=== PATIENT | female | born 1985 | race Caucasian/White ===

== ENCOUNTER → 2022-09-18 | Outpatient (REF) | payer OTHER | LOC: M LAB REF 16:40 | PROVIDERS: ATTEND Student in an Organized Health Care Education/Training Program | DX: J02.9 Acute pharyngitis, unspecified (principal) ==

== ENCOUNTER → 2022-11-13 | Outpatient (CLI) | payer OTHER ==
[2022-11-13 16:32] LABS: BASO % 0.8 % (0.0-1.0); EOS % 3.8 % (0.0-3.0); HEMATOCRIT 36.1 % (36.0-47.0); HEMOGLOBIN 11.2 g/dl (12.0-15.5); LYMPH % 20.2 % (24.0-44.0); MEAN CORPUSCULAR HEMOGLOBIN 28.8 pg (27.0-33.0); MEAN CORPUSCULAR VOLUME 92.8 fl (80.0-96.0); MONO % 7.6 % (2.0-8.0); NEUTROPHILS % 67.5 % (36.0-66.0); PLATELET COUNT, AUTOMATED 312 10^3/uL (150-450); RED BLOOD COUNT 3.89 10^6/uL (4.00-5.40); WHITE BLOOD COUNT 7.1 10^3/uL (4.0-10.0)
[2022-11-13 16:33] LABS: BASO # 0.1 10^3/uL (0.0-0.2); C REACTIVE PROTEIN QUANTITATIV < 0.40 MG/DL (<1.0); EOS # 0.3 10^3/uL (0.0-0.5); LYMPH # 1.4 10^3/uL (1.5-5.0); MONO # 0.5 10^3/uL (0.0-0.8); NEUTROPHILS # 4.8 10^3/uL (1.5-8.5)
[2022-11-13 16:34] LABS: RHEUMATOID FACTOR QUANT < 3.5 IU/ML (<14)
[2022-11-13 16:35] LABS: ALBUMIN 3.7 G/DL (3.2-5.2); ALKALINE PHOSPHATASE 62 U/L (46-116); ALT/SGPT < 9 U/L (7.0-40); AST/SGOT 15 U/L (<34); BILIRUBIN,TOTAL 0.3 MG/DL (0.3-1.2); BLOOD UREA NITROGEN 14 MG/DL (9-23); CALCIUM LEVEL 8.9 MG/DL (8.5-10.1); CARBON DIOXIDE LEVEL 27 MMOL/L (20-31); CHLORIDE LEVEL 105 MMOL/L (98-107); CREATININE FOR GFR 0.89 MG/DL (0.55-1.30); GLOMERULAR FILTRATION RATE > 60.0 (>60); GLUCOSE, FASTING 95 MG/DL (60-100); POTASSIUM SERUM 4.3 MMOL/L (3.5-5.1); SODIUM LEVEL 138 MMOL/L (136-145)
[2022-11-13 16:36] LABS: THYROID PEROXIDASE ANTIBODY 31 U/ML (<60.0); THYROID STIMULATING HORMONE 1.437 uIU/ML (0.55-4.78)
[2022-11-13 16:37] LABS: FREE T4 0.92 NG/DL (0.89-1.76)
[2022-11-13 16:57] LABS: ERYTHROCYTE SEDIMENTATION RATE 25 mm/hr (0-20)
== END ==
LOC: M WUC 10:48
PROVIDERS: ATTEND Physician Assistant
DX: L50.9 Urticaria, unspecified (principal)

== ENCOUNTER 2023-08-28 08:28 | Inpatient (IN) | payer OTHER ==
[2023-08-28] VITALS (9 sets, daily range): BP systolic 111–140; BP diastolic 59–75; TEMP 96.4; O2SAT 97–100
[~2023-08-28] VITALS: Ht 167.6 cm; Wt 96.3 kg
[~2023-08-28 08:28] MED LIST: GNPTAB36 PO; IRON65TA2 PO; MAGN400C2 PO; OMEP-173 PO; PRENMIS3 PO; UNIS25TA3 PO; VITA100T14 PO
[2023-08-28] MEDS ORDERED: LACTATED RINGER'S 1000 ML IV STA (08:41)
[2023-08-28] MEDS ORDERED: TRANEXAMIC ACID INJection 1,000 MG in NS 100 ML IV PRN (08:45)
[2023-08-28] MEDS ORDERED: METHYLERGONOVINE MALEATE 0.2MG/ML 1ML VIAL IM PRN ×2 (08:45→12:00)
[2023-08-28] MEDS ORDERED: CARBOPROST TROMETHAMINE 250 MCG/ML AMP IM PRN (08:45)
[2023-08-28] MEDS ORDERED: OXYTOCIN INJ 10UNITS/ML 1ML VIAL IM PRN (08:45)
[2023-08-28] MEDS ORDERED: OXYTOCIN DRIP 30 UNITS in IV 1 EA IV PRN (08:45)
[2023-08-28] MEDS ORDERED: ceFAZolin SOD 2 GM in IV 1 EA IV ONE (08:45)
[2023-08-28] MEDS ORDERED: BICITRA 30ML SOLN UDC PO ONE ×2 (08:45→08:50)
[2023-08-28] MEDS ORDERED: HOME MED LIST COMPLETE! XX SCH (09:15)
[2023-08-28] MEDS: LR 1,000 ML IV SCH ×3 (09:22→12:00)
[2023-08-28 09:25] LABS: HEMATOCRIT 33.7 % (36.0-47.0); HEMOGLOBIN 11.3 g/dl (12.0-15.5); MEAN CORPUSCULAR HEMOGLOBIN 30.6 pg (27.0-33.0); MEAN CORPUSCULAR HGB CONC 33.5 g/dl (32.0-36.5); MEAN CORPUSCULAR VOLUME 91.3 fl (80.0-96.0); PLATELET COUNT, AUTOMATED 213 10^3/uL (150-450); RED BLOOD COUNT 3.69 10^6/uL (4.00-5.40); WHITE BLOOD COUNT 11.8 10^3/uL (4.0-10.0)
[2023-08-28] MEDS ORDERED: OXYTOCIN 30UNITS IN 0.9% NaCl 500ML IV BAG As Ordered ONE ×2 (10:14→11:26)
[2023-08-28] MEDS ORDERED: MORPHINE PRES-FREE INJ 10 MG/10 ML VIAL As Ordered ONE (10:14)
[2023-08-28] MEDS ORDERED: OXYTOCIN INJ 10UNITS/ML 1ML VIAL As Ordered ONE (10:17)
[2023-08-28] MEDS ORDERED: ONDANSETRON 4MG 2ML VIAL As Ordered ONE (10:18)
[2023-08-28] MEDS ORDERED: PHENYLephrine 500MCG 5ML (100MCG/ML) SYRINGE As Ordered ONE (10:56)
[2023-08-28] MEDS ORDERED: ePHEDrine SULFATE 25 MG/5 ML(5MG/ML) SYRINGE As Ordered ONE (10:56)
[2023-08-28] MEDS ORDERED: KETOROLAC 60MG 2ML VIAL As Ordered ONE (10:57)
[2023-08-28] MEDS ORDERED: ACETAMINOPHEN 1000MG 100ML IV BAG As Ordered ONE (10:57)
[2023-08-28] MEDS ORDERED: ONDANSETRON 4MG 2ML VIAL IV PRN (11:30)
[2023-08-28] MEDS ORDERED: METOCLOPRAMIDE INJ 10MG/2ML VIAL IV PRN (11:30)
[2023-08-28] MEDS ORDERED: **NOTE PATIENT COMMENT** MISC XX SCH (11:30)
[2023-08-28] MEDS ORDERED: MEPERIDINE 25 MG/ML 1ML VIAL IV PRN (11:30)
[2023-08-28] MEDS ORDERED: diphenhydrAMINE 50MG/ML VIAL IV PRN (11:30)
[2023-08-28] MEDS ORDERED: NALBUPHINE HCL 1MG/0.1ML (100MG/10ML) MDV IV PRN (11:30)
[2023-08-28] MEDS ORDERED: NALOXONE INJ 0.4MG/1ML VIAL IV PRN ×2 (11:30)
[2023-08-28] MEDS ORDERED: LR 1,000 ML IV SCH (11:30)
[2023-08-28] MEDS: SLF 3 ML SYR IV SCH ×2 (11:30→18:03)
[2023-08-28] MEDS ORDERED: DOCUSATE SODIUM 100MG CAPSULE PO PRN (12:00)
[2023-08-28] MEDS ORDERED: ACETAMINOPHEN TAB 650MG DOSE (2X325MG) PO PRN (12:00)
[2023-08-28] MEDS ORDERED: SIMETHICONE 80MG CHEW TAB PO PRN (12:00)
[2023-08-28] MEDS ORDERED: MORPHINE 2 MG/ML 1ML VIAL IV PRN (12:00)
[2023-08-28] MEDS ORDERED: RHOGAM 300MCG (1500IU) INJ IM SCH (12:00)
[2023-08-28] MEDS ORDERED: oxyCODONE 5MG TAB PO PRN ×2 (12:00)
[2023-08-28] MEDS ORDERED: ACETAMINOPHEN 500 MG TAB PO PRN (12:00)
[2023-08-28] MEDS ORDERED: ANUSOL HC CREAM 30GM TOP PRN (12:00)
[2023-08-28] MEDS ORDERED: UNRESOLVED CLARIFICATION ENTRY XX SCH (13:00)
[2023-08-28] MEDS ORDERED: LR 500 ML IV ONE (17:30)
[2023-08-28] MEDS: KETOROLAC 30 MG/ML 1ML VIAL IV SCH ×2 (17:59→23:48)
[2023-08-28] MEDS: ENOXAPARIN 40MG/0.4ML SYRINGE (J1650 PER 10MG) SC SCH ×2 (18:00→18:33)
[2023-08-29] VITALS (7 sets, daily range): BP systolic 97–135; BP diastolic 52–83; O2SAT 97–100
[2023-08-29] MEDS: LR 1,000 ML IV SCH (01:48)
[2023-08-29] MEDS: SLF 3 ML SYR IV SCH (03:30)
[2023-08-29] MEDS: KETOROLAC 30 MG/ML 1ML VIAL IV SCH (05:49)
[2023-08-29 07:46] LABS: HEMATOCRIT 27.8 % (36.0-47.0); MEAN CORPUSCULAR HEMOGLOBIN 30.8 pg (27.0-33.0); MEAN CORPUSCULAR HGB CONC 33.1 g/dl (32.0-36.5); PLATELET COUNT, AUTOMATED 194 10^3/uL (150-450); RED BLOOD COUNT 2.99 10^6/uL (4.00-5.40); WHITE BLOOD COUNT 17.2 10^3/uL (4.0-10.0)
[2023-08-29 07:52] LABS: HEMOGLOBIN 9.2 g/dl (12.0-15.5)
[2023-08-29] MEDS: PRENATAL VITAMINS CHEWABLE TABLET PO SCH (07:53)
[2023-08-29] MEDS: IBUPROFEN 800 MG TAB PO SCH ×2 (15:57→21:54)
[2023-08-29] MEDS: ENOXAPARIN 40MG/0.4ML SYRINGE (J1650 PER 10MG) SC SCH (18:32)
[2023-08-30 01:52] VITALS: BP 121/59; O2SAT 97
[2023-08-30] MEDS: IBUPROFEN 800 MG TAB PO SCH (05:27)
[2023-08-30 05:43] VITALS: BP 136/72; O2SAT 98
[2023-08-30] MEDS: PRENATAL VITAMINS CHEWABLE TABLET PO SCH (08:31)
[2023-08-30] MEDS ORDERED: MEASLES,MUMPS,RUBELLA VACCINE INJ (MMR-II) SC.IMMUN ONE (09:00)
[2023-08-30] MEDS ORDERED: ACET1TAB55 PO (09:33)
[2023-08-30] MEDS ORDERED: COLA100C5 PO (09:33)
[2023-08-30] MEDS ORDERED: OXYC-517 PO (09:33)
[2023-08-30] MEDS ORDERED: IBUP80TA PO (09:33)
[2023-08-30 10:30] VITALS: BP 156/71; O2SAT 98
== END 2023-08-30 11:40 | disposition home or self-care (01) | DRG 773 ==
LOC: M LDI 08:28 → M OBS 13:55
PROVIDERS: ADMIT Obstetrics & Gynecology; ATTEND Obstetrics & Gynecology
PROC: 10D00Z1 Extraction of Products of Conception, Low, Open Approach (ICD-10-PCS; principal; 2023-08-28 10:30)
DX: O34.211 Maternal care for low transverse scar from previous cesarean delivery (principal); Z37.0 Single live birth; Z3A.39 39 weeks gestation of pregnancy